=== PATIENT | male | born 1960 | race Caucasian/White ===

== ENCOUNTER 2018-12-19 15:14 | Inpatient (IN) | payer OTHER ==
[~2018-12-19] VITALS: Ht 188 cm; Wt 99.8 kg
[2018-12-19 15:56] LABS: BASOPHILS # (AUTO) 0.1 /CMM (0.0-0.2); BASOPHILS % (AUTO) 0.6 % (0.0-2.0); HEMATOCRIT 54 % (39-51); HEMOGLOBIN 18.4 g/dL (13.5-17.5); LYMPHOCYTES # (AUTO) 1.2 /CMM (0.8-4.8); LYMPHOCYTES % (AUTO) 12.4 % (20.0-44.0); MEAN CORPUSCULAR HGB CONC 34 g/dl (31.0-36.0); MEAN CORPUSCULAR VOLUME 92 fL (80-96); MONOCYTES # (AUTO) 0.8 /CMM (0.1-1.30); MONOCYTES % (AUTO) 7.9 % (2.0-12.0); NEUTROPHILS # (AUTO) 7.7 /CMM (1.8-8.9); NEUTROPHILS % (AUTO) 78.1 % (43.0-81.0); PLATELET COUNT (AUTO) 168 /CMM (150-450); RED BLOOD CELL COUNT(AUTO) 5.85 MIL/uL (4.5-6.0); WHITE BLOOD COUNT (AUTO) 9.9 K/uL (4.3-11.0)
[2018-12-19] MEDS ORDERED: IV NS 0.9% 1,000 ML BAG IV ONE ×2 (16:00→18:30)
[2018-12-19 16:04] LABS: CALCIUM, SERUM 9.2 mg/dL (8.5-10.1); CARBON DIOXIDE 32 mmol/L (21-32); CHLORIDE 104 mmol/L (98-107); CREATININE 1.6 mg/dL (0.6-1.3); GLUCOSE 97 mg/dL (74-106); POTASSIUM 4.3 mmol/L (3.5-5.1); SODIUM SERUM 143 mmol/L (136-145); UREA NITROGEN, BLOOD 23 mg/dL (7-18)
[2018-12-19] MEDS ORDERED: ASPIRIN 325 MG TABLET PO ONE (17:00)
[2018-12-19] MEDS ORDERED: NITROGLYCERIN PACKET 1 GM PACKET TD ONE (17:00)
[2018-12-19] MEDS ORDERED: ASPIRIN 325 MG TABLET ONE (17:10)
[2018-12-19] MEDS ORDERED: NITROGLYCERIN PACKET 1 GM PACKET ONE (17:10)
[2018-12-19] MEDS ORDERED: HYDROCODONE/APAP 5/325MG 1 EACH TABLET PO PRN (20:00)
[2018-12-19] MEDS ORDERED: ONDANSETRON HCL/PF 4 MG/2 ML VIAL IVP PRN (20:00)
[2018-12-19] MEDS ORDERED: MAGNESIUM HYDROXIDE 30 ML UDC PO PRN (20:00)
[2018-12-19] MEDS ORDERED: ZOLPIDEM TARTRATE 5 MG TABLET PO PRN (20:00)
[2018-12-19] MEDS ORDERED: MAG HYDROX/AL HYDROX/SIMETH 30 ML UDC PO PRN (20:00)
[2018-12-19] MEDS ORDERED: MORPHINE SULFATE INJ 2 MG/ML DISP.SYRIN IV PRN (20:00)
[2018-12-19] MEDS ORDERED: Z GUARD REMEDY 2 OZ OINT TP PRN (20:00)
[2018-12-19 20:45] VITALS: BP 138/87
[2018-12-19] MEDS: IV NS 0.9% 1,000 ML IV PRN (21:12)
[2018-12-19] MEDS: ASPIRIN 325 MG TABLET PO SCH ×2 (22:12→22:14)
[2018-12-19] MEDS: NITROGLYCERIN PACKET 1 GM PACKET TOP SCH (23:30)
[2018-12-20] VITALS: BP 129/77
[2018-12-20] MEDS: ACETAMINOPHEN 325 MG TABLET PO PRN ×3 (00:23→10:57)
[2018-12-20 04:00] VITALS: BP 135/75
[2018-12-20] MEDS: NITROGLYCERIN PACKET 1 GM PACKET TOP SCH ×2 (04:53→12:43)
[2018-12-20 07:19] LABS: BASOPHILS % (AUTO) 0.3 % (0.0-2.0); EOSINOPHILS % (AUTO) 0.2 % (0.0-6.0); HEMATOCRIT 45 % (39-51); HEMOGLOBIN 15.3 g/dL (13.5-17.5); LYMPHOCYTES # (AUTO) 0.8 /CMM (0.8-4.8); LYMPHOCYTES % (AUTO) 8.4 % (20.0-44.0); MEAN CORPUSCULAR HGB CONC 34 g/dl (31.0-36.0); MEAN CORPUSCULAR VOLUME 92 fL (80-96); MONOCYTES # (AUTO) 1.1 /CMM (0.1-1.30); MONOCYTES % (AUTO) 11.7 % (2.0-12.0); NEUTROPHILS # (AUTO) 7.2 /CMM (1.8-8.9); NEUTROPHILS % (AUTO) 79.4 % (43.0-81.0); PLATELET COUNT (AUTO) 134 /CMM (150-450); RED BLOOD CELL COUNT(AUTO) 4.96 MIL/uL (4.5-6.0)
[2018-12-20] MEDS ORDERED: PANTOPRAZOLE 40 MG TABLET.DR PO SCH (07:30)
[2018-12-20 07:41] LABS: CREATININE 1.3 mg/dL (0.6-1.3); MAGNESIUM 1.9 mg/dL (1.8-2.4); PHOSPHORUS 2.3 mg/dL (2.5-4.9); POTASSIUM 3.8 mmol/L (3.5-5.1)
[2018-12-20 08:00] VITALS: BP 114/74
[2018-12-20] MEDS ORDERED: TEST200V3 IM (09:30)
[2018-12-20] MEDS ORDERED: ANAS1TAB8 PO (09:30)
[2018-12-20] MEDS: IV NS 0.9% 1,000 ML IV PRN (10:54)
[2018-12-20 12:00] VITALS: BP 126/80
[2018-12-20] MEDS ORDERED: K PHOS NEUTRAL 250 MG TABLET PO ONE (12:30)
[2018-12-20] MEDS ORDERED: METOPROLOL TARTRATE INJ 5 MG/5 ML AMPUL ONE (14:14)
[2018-12-20] MEDS ORDERED: NITROGLYCERIN 0.4 MG/TAB BOTTLE ONE (14:21)
[2018-12-20 16:00] VITALS: BP 132/81
[2018-12-20] MEDS ORDERED: IV NS 0.9% 250 ML IV ONE (16:38)
[2018-12-20] MEDS ORDERED: IOHEXOL-350 100 ML VIAL IV ONE (16:38)
[2018-12-20] MEDS ORDERED: CT SWABBABLE VALVE TRANS SET 1 EA INFUS.SET MC ONE (16:38)
== END 2018-12-20 18:45 | disposition home or self-care (01) | DRG 205 ==
LOC: ER 15:28 → TELE1 20:30 → MEDSG1 12-20 11:53
PROVIDERS: ADMIT Internal Medicine; ATTEND Internal Medicine
DX: M94.0 Chondrocostal junction syndrome [Tietze] (principal); N17.0 Acute kidney failure with tubular necrosis; G47.33 Obstructive sleep apnea (adult) (pediatric); R00.0 Tachycardia, unspecified
CPT/HCPCS: 36415; 71045-TC; 75574; 80048-TC; 80061-TC; 82550-TC; 83735-TC; 84100-TC; 84484-TC; 85025-TC; 85378-TC; 85610-TC; 85730-TC; 87081-TC; 93307-TC; 93970-TC; G0378; J3490; J7030; J7050; Q9967